=== PATIENT | female | born 1985 | race Caucasian/White ===

== ENCOUNTER → 2018-01-25 | Outpatient (CLI) | payer OTHER ==
[~2018-01-25] MED LIST: MOTRIN 600600 MG/TAB PO; PERCOCET 325 MG1 TA2 PO; PRENATAL1 TA7 PO
== END ==
LOC: COL.RAD 13:30
DX: E04.1 Nontoxic single thyroid nodule (principal)

== ENCOUNTER → 2018-02-09 | Outpatient (CLI) | payer OTHER ==
[~2018-02-09] VITALS: Ht 170.2 cm; Wt 55.8 kg
[2018-02-09 08:37] VITALS: BP 115/68; PULSE 73
[2018-02-09 09:50] VITALS: BP 125/85; PULSE 73
== END ==
LOC: COL.RAD 02-08 10:00
DX: E04.1 Nontoxic single thyroid nodule (principal)

== ENCOUNTER → 2020-01-29 | Outpatient (CLI) | payer BC ==
[~2020-01-29] MED LIST changes: +IBU600 MG PO; +PRENATAL TABLET PO
== END | disposition still patient (30) ==
LOC: ZCOL.LAB 05:53
DX: Z20.828 Contact with and (suspected) exposure to other viral communicable diseases (principal)

== ENCOUNTER 2020-02-04 09:34 | Inpatient (IN) | payer BC ==
[~2020-02-04] VITALS: Ht 167.7 cm; Wt 70.0 kg
[2020-02-04] VITALS (16 sets, daily range): BP systolic 81–135; BP diastolic 45–89; PULSE 41–84; TEMP 98.1–98.3
[~2020-02-04 09:34] MED LIST changes: -IBU600 MG PO; -PRENATAL TABLET PO
--- NOTE | 2020-02-04 09:40 | NUR ---
0940- Pt arrives on unit ambulatory for scheduled repeat section. Pt and oriented to room. Instructed to change into gown, understanding verbalizied. 0946- EFM and TOCO on and tracing well. Pt denies VB, LOF, UCs. +FM per Pt. Assessment completed. VSS. Difficulty faced with starting IV. Stuck x5 by 2 RNs. IV in R AC, labs obtained, fluids infusing well. Pt tolerated well.
[2020-02-04] MEDS ORDERED: PRENATAL TABLET PO (09:56)
[2020-02-04 10:48] LABS: BASO % 0.4 % (0.0-2.0); EOS # 0.1 (0.0-0.7); EOS % 1.1 % (0-4.0); GRAN # 4.7 (1.4-6.5); GRAN % 66.1 % (42.2-75.2); HEMATOCRIT 39.6 % (37.0-47.0); HEMOGLOBIN 13.4 g/dl (12.5-16.0); LYMPH # 1.8 (1.2-3.4); LYMPH % 25.4 % (20.0-51.0); MEAN CELL VOLUME 88 fl (80.0-100.0); MEAN CORPUSCULAR HEMOGLOBIN 30 pg (27.0-31.0); MEAN CORPUSCULAR HGB CONC 34 g/dl (33.0-37.0); MEAN PLATELET VOLUME 12.9 fl (7.4-10.4); MONO # 0.5 (0.1-0.6); MONO % 6.3 % (1.7-9.3); PLATELET COUNT 151 K/mm3 (130-400); RED BLOOD COUNT 4.48 M/mm3 (4.10-5.30); REDCELL DISTRIBUTION WIDTH-CV 12.4 % (11.5-14.5)
[2020-02-05] VITALS: BP 114/58; PULSE 49; TEMP 98.1
[2020-02-05 04:45] VITALS: BP 110/64; PULSE 52; TEMP 97.7
[2020-02-05 06:52] LABS: HEMOGLOBIN 12.1 g/dl (12.5-16.0)
[2020-02-05 06:56] LABS: HEMATOCRIT 36.9 % (37.0-47.0)
[2020-02-05 07:10] VITALS: BP 94/55; PULSE 58; TEMP 97.6
--- NOTE | 2020-02-05 08:44 | NUR ---
Initial visit; Parents thanked [employer] for offering congratulations and God's blessings for the of their daughter. [employer] thanked family for choosing [facility].
[2020-02-05 11:35] VITALS: BP 113/51; PULSE 67; TEMP 97.8
[2020-02-05 16:45] VITALS: BP 108/66; PULSE 59; TEMP 97.9
[2020-02-05 19:00] VITALS: BP 105/62; PULSE 58; TEMP 97.6
[2020-02-06 07:00] VITALS: BP 102/65; PULSE 78; TEMP 98.1
[2020-02-06] MEDS ORDERED: IBU600 MG PO (08:28)
[2020-02-06] MEDS ORDERED: PERCOCET 325 MG1 TA2 PO (08:29)
== END 2020-02-06 10:35 | disposition home or self-care (01) | DRG 788 ==
LOC: OB 09:34
PROVIDERS: ADMIT Obstetrics & Gynecology
PROC: 10D00Z1 Extraction of Products of Conception, Low, Open Approach (ICD-10-PCS; principal; 2020-02-04)
DX: O34.211 Maternal care for low transverse scar from previous cesarean delivery (principal); Z3A.39 39 weeks gestation of pregnancy; Z37.0 Single live birth
CPT/HCPCS: J0690; J1885; J2370; J2405; J2590; J7120